=== PATIENT | male | born 1940 | race Caucasian/White ===

== ENCOUNTER 2016-10-02 14:53 | Emergency (ER) | payer MEDICARE, BC ==
[~2016-10-02] VITALS: Ht 172.7 cm; Wt 72.6 kg
[~2016-10-02 14:53] MED LIST: ATOR10TA PO; DILT240C88 PO; LORA1TAB82 PO; METO-302 PO; WARF2.5T47 PO; WARF5TAB77 PO
[2016-10-02 16:07] VITALS: BP 135/70
== END 2016-10-02 16:08 | disposition home or self-care (01) ==
LOC: ER 14:57
DX: K22.2 Esophageal obstruction (principal); K22.8 Other specified diseases of esophagus; I10 Essential (primary) hypertension; I48.91 Unspecified atrial fibrillation; K21.9 Gastro-esophageal reflux disease without esophagitis; Z95.0 Presence of cardiac pacemaker; Z88.8 Allergy status to other drugs, medicaments and biological substances; Z88.1 Allergy status to other antibiotic agents; Z88.5 Allergy status to narcotic agent
CPT/HCPCS: 99285; A4606; Z7610